=== PATIENT | female | born 1980 | race Caucasian/White ===

== ENCOUNTER 2025-04-27 12:32 | Emergency (ER) | payer MEDICAID, OTHER ==
[~2025-04-27] VITALS: Ht 154.9 cm; Wt 70.0 kg
[~2025-04-27 12:32] MED LIST: DSS100 PO; IBUP-1492 PO; PERCT PO; PRENATAL ONE T1 EACH
[2025-04-27 12:34] VITALS: BP 127/71; PULSE 90; RESP 18; TEMP 98.2; O2SAT 100
[2025-04-27 12:56] LABS: PLATELET COUNT (AUTO) 303 K/uL (150-450); RED BLOOD CELL COUNT(AUTO) 4.57 MIL/uL (4.00-5.20); RED CELL DISTRIBUTION WIDTH 14.7 % (11.5-14.5); WHITE BLOOD COUNT (AUTO) 7.4 K/uL (4.5-11.0)
[2025-04-27 13:09] LABS: CALCIUM, TOTAL 9.0 mg/dL (8.8-10.5); CREATININE 0.56 mg/dL (0.60-1.30); GLOMERULAR FILTR. RATE CALC > 60 mL/min (>60); GLUCOSE,RANDOM 184 mg/dL (70-110); SODIUM SERUM 139 mmol/L (136-145); UREA NITROGEN, BLOOD 8 mg/dL (7-18)
[2025-04-27 13:12] LABS: TROPONIN I-HIGH SENSITIVITY Less Than 4 ng/L (<51)
[2025-04-27 13:34] LABS: APPEARANCE,URINE HAZY (CLEAR); GLUCOSE, URINE (UA) 70-100 mg/dL (NEGATIVE); LEUKOCYTE ESTERASE ,URINE NEGATIVE (NEGATIVE); NITRATE,URINE NEGATIVE (NEGATIVE); OCCULT BLOOD,URINE NEGATIVE (NEGATIVE); SPECIFIC GRAVITIY, URINE 1.026 (1.003-1.030)
[2025-04-27] MEDS ORDERED: ACET-66 PO (14:20)
[2025-04-27] MEDS ORDERED: IBUP-1554 PO (14:20)
[2025-04-27] MEDS: IBUPROFEN 600 MG TABLET PO ONE (14:33)
[2025-04-27] MEDS: ACETAMINOPHEN/CODEINE 300-30 MG TABLET PO ONE (14:34)
== END 2025-04-27 14:40 | disposition home or self-care (01) ==
LOC: EMS 12:32
DX: R00.2 Palpitations (principal); R51.9 Headache, unspecified; N89.8 Other specified noninflammatory disorders of vagina; Z79.899 Other long term (current) drug therapy
CPT/HCPCS: 80048; 81001; 84484; 84702; 85025; 93005; 99284